=== PATIENT | male | born 1955 | race Hispanic/Latino ===

== ENCOUNTER 2017-03-18 20:25 | Inpatient (IN) | payer OTHER ==
[2017-03-18] MEDS ORDERED: DILAUDID IV ONE (21:10)
[2017-03-18] MEDS ORDERED: ZOFRAN IV ONE (21:39)
[2017-03-18] MEDS ORDERED: MORPHINE IV ONE (21:39)
[2017-03-18] MEDS ORDERED: NACL 0.9% 500 ML 500 ML IV ONE (21:41)
[2017-03-18 22:06] LABS: Basophils % (Auto) 0.3 % (0.0-1.8); Eosinophils % (Auto) 0.2 % (0.0-4.3); Hematocrit 36.8 % (35.5-45.6); Lymphocytes # (Auto) 0.6 K/mm3 (1.2-5.4); Lymphocytes % (Auto) 7.2 % (13.4-35.0); Mean Corpuscular HGB Conc 35 % (32-34); Mean Corpuscular Hemoglobin 30 pg (28-32); Mean Corpuscular Volume 85 fl (84-94); Monocytes # (Auto) 0.5 K/mm3 (0.0-0.8); Monocytes % (Auto) 6.1 % (0.0-7.3); Platelet Count 267 K/mm3 (140-440); Red Blood Count 4.31 M/mm3 (3.65-5.03); Red Cell Distribution Width 13.9 % (13.2-15.2)
[2017-03-18 22:16] LABS: INR 0.88 (0.87-1.13)
[2017-03-18 22:17] LABS: Partial Thromboplastin Time 27.7 Sec. (24.2-36.6)
[2017-03-18 22:21] LABS: Alanine Aminotransferase 23 units/L (7-56); Albumin 3.9 g/dL (3.9-5); BUN/Creatinine Ratio 30; Blood Urea Nitrogen 30 mg/dL (9-20); Calcium 9.8 mg/dL (8.4-10.2); Hemolysis Index 2; Lipase 31 units/L (13-60)
--- NOTE | 2017-03-18 22:33 | Emergency Department Report ---
HPI - General Chief Complaint: Abdominal Pain Time Seen by Provider: 03/18/17 21:04 - HPI HPI: The patient's is a 61 yo male who presents for evaluation of abdominal pain and bleeding from his G-tube insertion site. The patient reports on and off severe bleeding from his G-tube insertion site for the past 6 hours. He also complains of moderate to severe crampy in quality pain, exacerbated with movement, improved with rest, also present since the early evening. The patient denies fever, chills, night sweats, chest pain, dyspnea, hemoptysis, syncope, diarrhea, blood in the stool, dark tarry stool, dysuria, hematuria, flank pain, epistaxis, hematemesis, bruising or ecchymosis. ED Past Medical Hx - Past Medical History Hx Hypertension: Yes Hx Diabetes: Yes (type 2) Additional medical history: throat cancer SD stent placement - Surgical History Past Surgical History?: Yes Additional Surgical History: peg tube . - Social History Smoking Status: Never Smoker Substance Use Type: None ED Review of Systems ROS: Stated complaint: BLEEDING FRON FEEDING TUBE Other details as noted in HPI Constitutional: denies: fever ENT: denies: throat or neck pain Respiratory: denies: cough, shortness of breath Cardiovascular: denies: chest pain Endocrine: denies unexplained weight loss or gain Gastrointestinal: reports abdominal pain, nausea Genitourinary: denies: dysuria Musculoskeletal: denies: leg swelling Skin: denies: rash Neurological: denies: headache Hematological/Lymphatic: denies: easy bleeding or easy bruising Psych: denies sadness or hopelessness Physical Exam - Physical Exam Vital Signs: Vital Signs 03/18/17 03/18/17 20:46 22:06 Temperature 97.7 F Pulse Rate 115 H Respiratory 16 20 Rate Blood Pressure 168/85 O2 Sat by Pulse 95 97 Oximetry Physical Exam: General: well-nourished, well-developed, no acute distress Head: Normocephalic, atraumatic Eyes: normal sclera ENT: Mucous membranes are pink and moist Neck: trachea midline, neck supple, No neck stiffness, no cervical adenopathy Respiratory: Breath sounds equal bilaterally, no wheezing, rales, or rhonchi Cardio: S1 and S2 present, no murmurs, rubs, gallops, capillary refill is brisk Abdomen: Normoactive bowel sounds, soft abdomen, gtube present to anterior abd wall, generalized tenderness to palpation present, no active bleeding, no rigidity, no guarding or rebound tenderness Musc: No pitting edema Skin: No rash Neuro: no facial drooping, normal speech Psych: Normal affect ED Course Vital Signs 03/18/17 03/18/17 20:46 22:06 Temperature 97.7 F Pulse Rate 115 H Respiratory 16 20 Rate Blood Pressure 168/85 O2 Sat by Pulse 95 97 Oximetry ED Medical Decision Making - Lab Data Result diagrams: 03/18/17 21:45 03/18/17 21:45 - Medical Decision Making The patient was seen and examined by myself. The patient is placed on a radiographer cardiac catheterization and continuous pulse ox. On initial evaluation, the patient was found to be in no distress. Evaluation orders were placed. The patient is given normal saline fluid bolus and IV pain medicine. [facility] was contacted for medical records. CT scan abdomen and pelvis reveals Findings consistent with dislodgment of the gastric tube. Dr. Escobedo the surgeon on-call for the patient's surgeon was contacted. He agreed to consultation and to evaluate the patient in the a.m. The on-call hospitalist service was contacted. They agreed to admit the patient for further treatment and close monitoring. The ED admit order was placed. The patient was admitted in guarded condition. Critical care attestation.: If time is entered above; I have spent that time in minutes in the direct care of this critically ill patient, excluding procedure time. ED Disposition Clinical Impression: Dehydration, Gastrostomy tube dysfunction, Dislodged gastrostomy tube, Acute hyponatremia, Hypochloremia, Acute generalized abdominal pain Disposition: OP ADMIT IP TO THIS HOSP Is pt being admited?: Yes Does the pt Need Aspirin: No Condition: Serious Time of Disposition: 22:33
--- NOTE | 2017-03-18 23:49 | Cat Scan Report ---
FINAL REPORT EXAM: CT ABDOMEN PELVIS W CON HISTORY: pain and bleeding at G-tube insertion site TECHNIQUE: CT abdomen and pelvis with oral and intravenous contrast PRIORS: None. FINDINGS: No acute abnormality identified in the lung bases. There is a PEG tube present. The bulb is outside of the stomach within soft tissues of the anterior abdominal wall there is channel containing air extending from the distal end of the tube to the body of the stomach No focal abnormality identified within the liver parenchyma. The spleen demonstrates normal size and attenuation. No pancreatic abnormalities seen. The kidneys demonstrate symmetric contrast enhancement. Adrenal glands are unremarkable. No evidence of hydronephrosis. Small low-density focus lower pole right kidney most likely represents a cyst. Abdominal aorta is normal in caliber. No pathologically enlarged lymph nodes are identified. No signs of free fluid or free air No evidence of small bowel dilatation. The appendix is identified and is normal in size no adjacent inflammatory change seen. No pericolonic inflammatory changes are observed. Urinary bladder is unremarkable. Noted are degenerative disc changes at L4-5 with vacuum disc. IMPRESSION: PEG tube is extra luminal with the bulb and distal end of the tube anterior abdominal wall Degenerative disc changes noted at L4-5
[2017-03-19] MEDS ORDERED: NACL 0.9% 1000 ML 1,000 ML IV ONE (00:12)
[2017-03-19] MEDS ORDERED: PROVENTIL IH ONE (02:16)
[2017-03-19] MEDS: PROVENTIL IH SCH ×4 (02:18→11:33)
--- NOTE | 2017-03-19 02:38 | History and Physical Report ---
History of Present Illness Date of examination: 03/19/17 Date of admission: 03/19/17 00:13 Chief complaint: Leaking G tube History of present illness: 61-year-old male with past medical history significant for throat cancer, diabetes mellitus, hypertension, COPD, CAD status post stent (emergency department complaining his G tube is leaking. Patient had G tube placed by Dr. Escobedo on February 17, since that time the patient had pain at the site of G- tube. But this afternoon patient had bleeding from the site of G-tube, and leaking. Patient went to [facility] and told there is no bed so that he come to [facility]. Dr. Escobedo was consulted by ER doctor and said he will fix the G-tube in the morning. I have discussed with the patient and the family about reconciliations of his medications but he said he'll take his home medications that he wants to. He wants only nebulizer treatment and I gave that. per his family the patient refused medications. I planned to put SSI but he refused. REVIEW OF SYSTEMS: GENERAL: no weight change, no fatigue, no fever HEAD: no head ache EYES: no blurry vision, no acute visual loss EARS: no hearing loss, no discharge, no earache NOSE: no stuffiness, no sneezing, no discharge MOUTH, THROAT AND NECK: no bleeding gums, no sore throat, no swollen neck CARDIAC: no palpitations, no dyspnea on exertion, no orthopnea, no PND, no edema , no chest pain RESPIRATORY: no shortness of breath, no wheeze, no cough, no sputum, no hemoptysis, no asthma GI: As stated in the HPI. URINARY: no change in frequency, no urgency, no polyuria, no hematuria, no incontinence MUSCULOSKELETAL: no muscle weakness, no pain, no joint stiffness NEUROLOGIC: no loss of sensation/numbness, no tingling, no tremors, no weakness/ paralysis HEMATOLOGIC: no anemia, no easy bruising SKIN: no rashes ENDOCRINE: no heat/cold intolerance, no polyuria, no polydipsia, no thyroid problems, + diabetes PSYCHIATRIC: no anxiety, no depression, no suicidal ideations Past History Past Medical History: cancer, COPD, diabetes, hypertension, hyperlipidemia Past Surgical History: Other (G tube placement) Social history: smoking (quit 3 months ago), full code. denies: alcohol abuse, prescription drug abuse, IV drug use Family history: no significant family history Medications and Allergies Allergies Allergy/AdvReac Type Severity Reaction Status Date / Time No Known Allergies Allergy Verified 03/18/17 20:46 Active Meds: Active Medications Albuterol (Proventil) 2.5 mg IH Q4HRT [facility] Last Admin: 03/19/17 02:18 Dose: 2.5 mg Exam - Physical Exam Narrative exam: Not in cardiopulmonary distress. The patient appeared well nourished and normally developed. Vital signs as documented. Head exam is unremarkable. No scleral icterus . Neck is without jugular venous distension, thyromegaly, or carotid bruits. Lungs are clear to auscultation. Cardiac exam reveals regular rate and Rhythm. First and second heart sounds normal. No murmurs, rubs or gallops. Abdominal exam reveals PEG tube in place. Extremities are nonedematous and both femoral and pedal pulses are normal. HAND CLOTH EXAMINER: Alert and oriented 3. No focal weakness. - Constitutional Vitals: Temp Pulse Resp BP Pulse Ox 97.7 F 92 H 20 152/62 97 03/18/17 20:46 03/19/17 02:22 03/19/17 02:22 03/19/17 02:00 03/19/17 02:00 Results - Labs CBC & Chem 7: 03/18/17 21:45 03/18/17 21:45 Labs: Laboratory Last Values WBC 7.7 K/mm3 (4.5-11.0) 03/18/17 21:45 RBC 4.31 M/mm3 (3.65-5.03) 03/18/17 21:45 Hgb 13.0 gm/dl (11.8-15.2) 03/18/17 21:45 Hct 36.8 % (35.5-45.6) 03/18/17 21:45 MCV 85 fl (84-94) 03/18/17 21:45 MCH 30 pg (28-32) 03/18/17 21:45 MCHC 35 % (32-34) H 03/18/17 21:45 RDW 13.9 % (13.2-15.2) 03/18/17 21:45 Plt Count 267 K/mm3 (140-440) 03/18/17 21:45 Lymph % (Auto) 7.2 % (13.4-35.0) L 03/18/17 21:45 [place] % (Auto) 6.1 % (0.0-7.3) 03/18/17 21:45 Eos % (Auto) 0.2 % (0.0-4.3) 03/18/17 21:45 Baso % (Auto) 0.3 % (0.0-1.8) 03/18/17 21:45 Lymph # 0.6 K/mm3 (1.2-5.4) L 03/18/17 21:45 [place] # 0.5 K/mm3 (0.0-0.8) 03/18/17 21:45 Eos # 0.0 K/mm3 (0.0-0.4) 03/18/17 21:45 Baso # 0.0 K/mm3 (0.0-0.1) 03/18/17 21:45 Seg Neutrophils % 86.2 % (40.0-70.0) H 03/18/17 21:45 Seg Neutrophils # 6.6 K/mm3 (1.8-7.7) 03/18/17 21:45 PT 12.4 Sec. (12.2-14.9) 03/18/17 21:45 INR 0.88 (0.87-1.13) 03/18/17 21:45 APTT 27.7 Sec. (24.2-36.6) 03/18/17 21:45 Sodium 129 mmol/L (137-145) L 03/18/17 21:45 Potassium 4.7 mmol/L (3.6-5.0) 03/18/17 21:45 Chloride 87.1 mmol/L (98-107) L 03/18/17 21:45 Carbon Dioxide 27 mmol/L (22-30) 03/18/17 21:45 Anion Gap 20 mmol/L 03/18/17 21:45 BUN 30 mg/dL (9-20) H 03/18/17 21:45 Creatinine 1.0 mg/dL (0.8-1.5) 03/18/17 21:45 Estimated GFR > 60 ml/min 03/18/17 21:45 BUN/Creatinine Ratio 30 % 03/18/17 21:45 Glucose 175 mg/dL (75-100) H 03/18/17 21:45 Calcium 9.8 mg/dL (8.4-10.2) 03/18/17 21:45 Total Bilirubin 0.80 mg/dL (0.1-1.2) 03/18/17 21:45 AST 13 units/L (5-40) 03/18/17 21:45 ALT 23 units/L (7-56) 03/18/17 21:45 Alkaline Phosphatase 89 units/L (35-129) 03/18/17 21:45 Total Protein 7.6 g/dL (6.3-8.2) 03/18/17 21:45 Albumin 3.9 g/dL (3.9-5) 03/18/17 21:45 Albumin/Globulin Ratio 1.1 % 03/18/17 21:45 Lipase 31 units/L (13-60) 03/18/17 21:45 - Imaging and Cardiology CT scan - abdomen: report reviewed Assessment and Plan Assessment and plan: Leaking G tube - Dr. Escobedo consulted and will fix in the morning Hypertension, COPD, diabetes mellitus, throat cancer, CAD S/P stent - Patient doesn't want any medications, and he wants to take his medications whenever he needs Disposition - Admit to medical floor Advance Directives: Yes VTE prophylaxis?: Not ordered (Patient refused) Plan of care discussed with patient/family: Yes
[2017-03-19 06:13] LABS: Basophils % (Auto) 0.5 % (0.0-1.8); Eosinophils % (Auto) 0.3 % (0.0-4.3); Hematocrit 31.3 % (35.5-45.6); Hemoglobin 11.4 gm/dl (11.8-15.2); Lymphocytes # (Auto) 0.4 K/mm3 (1.2-5.4); Lymphocytes % (Auto) 7.3 % (13.4-35.0); Mean Corpuscular HGB Conc 36 % (32-34); Mean Corpuscular Hemoglobin 31 pg (28-32); Mean Corpuscular Volume 84 fl (84-94); Monocytes # (Auto) 0.4 K/mm3 (0.0-0.8); Monocytes % (Auto) 6.8 % (0.0-7.3); Platelet Count 210 K/mm3 (140-440); Red Blood Count 3.72 M/mm3 (3.65-5.03); Red Cell Distribution Width 14.1 % (13.2-15.2)
[2017-03-19 06:24] LABS: INR 0.92 (0.87-1.13)
[2017-03-19 06:31] LABS: BUN/Creatinine Ratio 33; Blood Urea Nitrogen 26 mg/dL (9-20); Hemolysis Index 4
[2017-03-19] MEDS ORDERED: D5NS 1,000 ML IV SCH (10:00)
[2017-03-19] MEDS ORDERED: NOVOLOG SUB-Q SCH (12:00)
[2017-03-19] MEDS ORDERED: MORPHINE IV ONE ×2 (12:48→13:03)
[2017-03-19] MEDS ORDERED: MORPHINE IM ONE (12:49)
--- NOTE | 2017-03-19 13:31 | Consultation ---
History of Present Illness Consult date: 03/19/17 Reason for consult: other (Malfunctioning PEG) - History of present illness History of present illness: 61 yo male diagnosed with throat cancer 3 months ago. He has been receiving chemo and RT. Prior attempts at PEG placement were unsuccessful 2/2 inability to pass the scope past the tumor. Therefore, about 1 month ago, Dr. Huston placed a laparoscopic G-tube. Over the past week, the pt c/o increased drainage of gastric juice and tube feedings onto his skin. A G-tube study done yesterday at [facility] revealed free flow into the stomach but confirmed the above drainage onto his skin. Past History Past Medical History: cancer, COPD, diabetes, hypertension, hyperlipidemia Past Surgical History: Other (G tube placement) Social history: smoking (quit 3 months ago), full code. denies: alcohol abuse, prescription drug abuse, IV drug use Family history: no significant family history Medications and Allergies Allergies Allergy/AdvReac Type Severity Reaction Status Date / Time No Known Allergies Allergy Verified 03/18/17 20:46 Home Medications Medication Instructions Recorded Confirmed Last Taken Type ALPRAZolam [Xanax TAB] 1 mg PO TID PRN 03/19/17 03/19/17 03/17/17 History Atenolol [Tenormin] 50 mg PO DAILY 03/19/17 03/19/17 03/17/17 History Clonidine 0.2 mg PO HS 03/19/17 03/19/17 03/17/17 History Famotidine 20 mg PO HS 03/19/17 03/19/17 03/17/17 History Gabapentin 300 mg PO TID 03/19/17 03/19/17 03/17/17 History Hydrochlorothiazide [HCTZ] 25 mg PO DAILY 03/19/17 03/19/17 03/17/17 History Ibuprofen 800 mg PO TID PRN 03/19/17 03/19/17 Unknown History Lisinopril 20 mg PO DAILY 03/19/17 03/19/17 03/17/17 History Metformin HCl 500 mg PO BID 03/19/17 03/19/17 03/17/17 History Simvastatin 20 mg PO HS 03/19/17 03/19/17 03/17/17 History Active Meds: Active Medications Albuterol (Proventil) 2.5 mg IH Q4HRT [facility] Last Admin: 03/19/17 11:33 Dose: Not Given Dextrose/Sodium Chloride (D5ns) 1,000 mls @ 75 mls/hr IV DIRECT [facility] Last Admin: 03/19/17 09:52 Dose: 75 mls/hr Insulin Aspart (Novolog) 0 units SUB-Q Q6HR JIMI PRN Reason: Protocol Review of Systems All systems: negative Exam Vital Signs Temp Pulse Resp BP Pulse Ox 97.7 F 115 H 16 168/85 95 03/18/17 20:46 03/18/17 20:46 03/18/17 20:46 03/18/17 20:46 03/18/17 20:46 - General physical appearance Positive: well developed, well nourished, no distress - Eyes Positive: PERRL, normal occular movement - ENT Positive: normal pinna, normal nares, normal mucosa, no hearing loss, no congestion - Neck Positive: no masses, no bruits, trachea midline, no venous distension - Respiratory Positive: normal expansion, normal respiratory effort, clear to auscultation - Cardiovascular Rhythm: regular Heart Sounds: Present: S1 & S2. Absent: rub, click - Extremities Extremities: no ischemia, pulses symmetrical, No edema - Breasts Breasts: deferred - Abdomen Abdomen: Present: soft, bowel sounds normal, other (I can see the internal bolster of the G-tube just beneath his skin incision.) - Genitourinary Male Genitourinary: deferred - Integumentary no rash, no growths, no abnormal pigmentation - Neurologic Neurologic: alert and oriented to time, place and person, motor strength and sensation are grossly intact - Musculoskeletal normal gait, normal posture - Psychiatric Psychiatric: appropriate mood/affect, intact judgment & insight Results - Labs 03/19/17 05:51 03/19/17 05:51 Abnormal lab results 03/18/17 03/18/17 03/19/17 Range/Units 21:45 21:45 05:51 Hgb 11.4 L (11.8-15.2) gm/dl Hct 31.3 L (35.5-45.6) % MCHC 35 H 36 H (32-34) % Lymph % (Auto) 7.2 L 7.3 L (13.4-35.0) % Lymph # 0.6 L 0.4 L (1.2-5.4) K/mm3 Seg Neutrophils % 86.2 H 85.1 H (40.0-70.0) % Sodium 129 L (137-145) mmol/L Chloride 87.1 L (98-107) mmol/L BUN 30 H (9-20) mg/dL Glucose 175 H (75-100) mg/dL POC Glucose (70-105) 03/19/17 03/19/17 03/19/17 Range/Units 05:51 10:11 12:30 Hgb (11.8-15.2) gm/dl Hct (35.5-45.6) % MCHC (32-34) % Lymph % (Auto) (13.4-35.0) % Lymph # (1.2-5.4) K/mm3 Seg Neutrophils % (40.0-70.0) % Sodium 130 L (137-145) mmol/L Chloride 90.6 L (98-107) mmol/L BUN 26 H (9-20) mg/dL Glucose 160 H (75-100) mg/dL POC Glucose 174 H 176 H (70-105) Diabetes panel 03/18/17 03/19/17 Range/Units 21:45 05:51 Sodium 129 L 130 L (137-145) mmol/L Potassium 4.7 4.6 (3.6-5.0) mmol/L Chloride 87.1 L 90.6 L (98-107) mmol/L Carbon Dioxide 27 26 (22-30) mmol/L BUN 30 H 26 H (9-20) mg/dL Creatinine 1.0 0.8 (0.8-1.5) mg/dL Glucose 175 H 160 H (75-100) mg/dL Calcium 9.8 9.0 (8.4-10.2) mg/dL AST 13 (5-40) units/L ALT 23 (7-56) units/L Alkaline Phosphatase 89 (35-129) units/L Total Protein 7.6 (6.3-8.2) g/dL Albumin 3.9 (3.9-5) g/dL Calcium panel 03/18/17 03/19/17 Range/Units 21:45 05:51 Calcium 9.8 9.0 (8.4-10.2) mg/dL Albumin 3.9 (3.9-5) g/dL Pituitary panel 03/18/17 03/19/17 Range/Units 21:45 05:51 Sodium 129 L 130 L (137-145) mmol/L Potassium 4.7 4.6 (3.6-5.0) mmol/L Chloride 87.1 L 90.6 L (98-107) mmol/L Carbon Dioxide 27 26 (22-30) mmol/L BUN 30 H 26 H (9-20) mg/dL Creatinine 1.0 0.8 (0.8-1.5) mg/dL Glucose 175 H 160 H (75-100) mg/dL Calcium 9.8 9.0 (8.4-10.2) mg/dL Adrenal panel 03/18/17 03/19/17 Range/Units 21:45 05:51 Sodium 129 L 130 L (137-145) mmol/L Potassium 4.7 4.6 (3.6-5.0) mmol/L Chloride 87.1 L 90.6 L (98-107) mmol/L Carbon Dioxide 27 26 (22-30) mmol/L BUN 30 H 26 H (9-20) mg/dL Creatinine 1.0 0.8 (0.8-1.5) mg/dL Glucose 175 H 160 H (75-100) mg/dL Calcium 9.8 9.0 (8.4-10.2) mg/dL Total Bilirubin 0.80 (0.1-1.2) mg/dL AST 13 (5-40) units/L ALT 23 (7-56) units/L Alkaline Phosphatase 89 (35-129) units/L Total Protein 7.6 (6.3-8.2) g/dL Albumin 3.9 (3.9-5) g/dL Assessment and Plan - Patient Problems (1) Dislodged gastrostomy tube Current Visit: Yes Status: Acute Plan to address problem: 1) Pt's existing G-tube was easily removed using the traction method. 2) I then replaced the G-tube with a 16 [place] garibay catheter with the G-tubes external bolster placed on the garibay catheter. This was accomplished without difficulty. 3) A G-tube study will be performed to confirm that the garibay catheter is within the pt's stomach. 4) If the G-tube study is unremarkable, the pt can be discharged home.
--- NOTE | 2017-03-19 13:48 | Discharge Summary ---
Providers - Providers Date of Admission: 03/19/17 00:13 Attending physician: LEXI HILTON MD 03/19/17 00:15 Consult to Physician [CONS] Stat Consulting Provider: ABBY ESCOBEDO Reason For Exam: gtube dislodgement Place consult to:: Dr. Escobedo Notified:: Via his number Phone number called:: his number Was contact made?: Yes If yes, spoke with:: Dr. Escobedo Time called:: 00:08 Comment:: Dr. Lynne (er dr) spoke with Dr. Escobedo Primary care physician: [employer] INSPECTOR Hospitalization Reason for admission: malfunctioning Peg tube Condition: Serious Hospital course: 61-year-old male with past medical history significant for throat cancer, diabetes mellitus, hypertension, COPD, CAD status post stent (emergency department complaining his G tube is leaking. Patient had G tube placed by Dr. Escobedo on February 17, since that time the patient had pain at the site of G- tube. But this afternoon patient had bleeding from the site of G-tube, and leaking. Patient went to [facility] and told there is no bed so that he come to [facility]. Dr. Escobedo was consulted by ER doctor and said he will fix the G-tube in the morning. I have discussed with the patient and the family about reconciliations of his medications but he said he'll take his home medications that he wants to. He wants only nebulizer treatment and I gave that per his family the patient refused medications. I planned to put SSI but he refused. Per surgical note, He has been receiving chemo and RT. Prior attempts at PEG placement were unsuccessful 2/2 inability to pass the scope past the tumor. Therefore, about 1 month ago, Dr. Huston placed a laparoscopic G-tube. Over the past week, the pt c/o increased drainage of gastric juice and tube feedings onto his skin. A G-tube study done yesterday at [facility] [place] revealed free flow into the stomach but confirmed the above drainage onto his skin. The patients tube was replaced by Surgery with a 16 inch Lao Lee Catheter with the G-tube external bloster and Imaging study confirmed placement. Patient requested to leave and was discharged Discharge Diagnosis Dislogded gastrostomy tube Diabetes Mellitus HTN Throat CA COPD Disposition: TO HOME OR SELFCARE Time spent for discharge: 35 MINS Core Measure Documentation - Palliative Care Palliative Care/ Comfort Measures: Not Applicable - Core Measures Any of the following diagnoses?: none - VTE Discharge Requirements Deep Vein Thrombosis/Pulmonary Embolism Present on Admission: No Exam - Constitutional Vitals: Temp Pulse Resp BP Pulse Ox 97.6 F 88 18 126/65 98 03/19/17 08:07 03/19/17 08:20 03/19/17 08:20 03/19/17 08:07 03/19/17 08:07 General appearance: Present: no acute distress, cachectic - EENT Eyes: Present: PERRL, EOM intact ENT: hearing intact, clear oral mucosa - Neck Neck: Present: supple, normal ROM - Respiratory Respiratory effort: normal Respiratory: bilateral: CTA - Cardiovascular Rhythm: regular Heart Sounds: Present: S1 & S2. Absent: systolic murmur, diastolic murmur - Extremities Extremities: no ischemia, pulses intact, pulses symmetrical, No edema, normal temperature, Full ROM Peripheral Pulses: within normal limits - Abdominal General gastrointestinal: Present: soft, non-tender, non-distended, other (PEG TUBE) - Integumentary Integumentary: Present: clear, warm, dry - Musculoskeletal Musculoskeletal: strength equal bilaterally - Psychiatric Psychiatric: appropriate mood/affect, intact judgment & insight, memory intact, cooperative - Neurologic Neurologic: CNII-XII intact, moves all extremities - Allied Health Allied health notes reviewed: nursing Plan Activity: advance as tolerated, fall precautions Diet: per dietitian instruction Special Instructions: record daily BP diary, record blood sugar diary Follow up with: PRIMARY CAREMD [Primary Care Provider] - 3-5 Days
--- NOTE | 2017-03-19 16:05 | Fluoroscopy Report ---
G-tube placement: A PEG tube is present entering the left abdomen. The tip is within the mid body of the stomach. Contrast was injected but no extravasation. A small amount contrast is noted in the proximal bowel. Impression: Well-positioned PEG tube.
[2017-03-19 16:13] VITALS: BP 147/72
== END 2017-03-19 16:36 | disposition home or self-care (01) | DRG 394 ==
LOC: ED 20:25 → 3A 03-19 00:13
PROVIDERS: ADMIT Internal Medicine; ATTEND Internal Medicine
PROC: 0D20XUZ Change Feeding Device in Upper Intestinal Tract, External Approach (ICD-10-PCS; principal; 2017-03-19)
DX: K94.21 Gastrostomy hemorrhage (principal); E87.1 Hypo-osmolality and hyponatremia; Y83.8 Other surgical procedures as the cause of abnormal reaction of the patient, or of later complication, without mention of misadventure at the time of the procedure; Y92.89 Other specified places as the place of occurrence of the external cause; E86.0 Dehydration; I10 Essential (primary) hypertension; E11.9 Type 2 diabetes mellitus without complications; E87.8 Other disorders of electrolyte and fluid balance, not elsewhere classified; J44.9 Chronic obstructive pulmonary disease, unspecified; I25.10 Atherosclerotic heart disease of native coronary artery without angina pectoris
CPT/HCPCS: 36415; 49465; 74177; 80048; 80053; 82962; 83690; 85025; 85610; 85730; 94640; 99406; J2270; J2405; J7030; J7040; J7042; Q9963; Q9967